=== PATIENT | female | born 1985 | race Caucasian/White ===

== ENCOUNTER → 2016-09-17 | Outpatient (CLI) | payer BC ==
[2016-09-18 23:10] LABS: CMVRU RESULT Negative (Negative); CMVRU SPECIMEN SOURCE AMINOTIC FLUID
[2016-09-19 09:53] LABS: GA USED Scan estimate; GENERAL TEST INFO See Comments; INTERPRETATION See Comments
[2016-09-19 14:13] LABS: MISCELLANEOUS TEST See Comments
[2016-09-27 10:33] LABS: MISCELLANEOUS TEST See Comments
== END ==
LOC: FIMAGING 10:07
PROVIDERS: ATTEND Advanced Practice Midwife
PROC: 10903ZU Drainage of Amniotic Fluid, Diagnostic from Products of Conception, Percutaneous Approach (ICD-10-PCS; principal; 2016-09-17)
DX: O36.5921 Maternal care for other known or suspected poor fetal growth, second trimester, fetus 1 (principal); R63.0 Anorexia; Z3A.21 21 weeks gestation of pregnancy
CPT/HCPCS: 82106-90; 87496-90; 87798-90

== ENCOUNTER → 2016-10-03 | Outpatient (CLI) | payer BC | LOC: FIMAGING 14:39 | PROVIDERS: ATTEND Advanced Practice Midwife | DX: O36.5920 Maternal care for other known or suspected poor fetal growth, second trimester, not applicable or unspecified (principal); Z3A.24 24 weeks gestation of pregnancy ==

== ENCOUNTER → 2016-10-10 | Outpatient (CLI) | payer BC | LOC: FIMAGING 10:04 | PROVIDERS: ATTEND Advanced Practice Midwife | DX: O36.5920 Maternal care for other known or suspected poor fetal growth, second trimester, not applicable or unspecified (principal); Z3A.25 25 weeks gestation of pregnancy ==

== ENCOUNTER → 2016-10-17 | Outpatient (CLI) | payer BC | LOC: FIMAGING 13:27 | PROVIDERS: ATTEND Advanced Practice Midwife | DX: O26.842 Uterine size-date discrepancy, second trimester (principal); Z3A.26 26 weeks gestation of pregnancy ==

== ENCOUNTER → 2016-10-24 | Outpatient (CLI) | payer BC | LOC: FIMAGING 10:03 | PROVIDERS: ATTEND Advanced Practice Midwife | DX: O36.5931 Maternal care for other known or suspected poor fetal growth, third trimester, fetus 1 (principal); Z3A.27 27 weeks gestation of pregnancy ==

== ENCOUNTER → 2016-10-31 | Outpatient (CLI) | payer BC | LOC: FIMAGING 11:40 | PROVIDERS: ATTEND Advanced Practice Midwife | DX: O36.5930 Maternal care for other known or suspected poor fetal growth, third trimester, not applicable or unspecified (principal); Z3A.28 28 weeks gestation of pregnancy ==

== ENCOUNTER → 2016-11-07 | Outpatient (CLI) | payer BC | LOC: FIMAGING 09:45 | PROVIDERS: ATTEND Advanced Practice Midwife | DX: O36.5921 Maternal care for other known or suspected poor fetal growth, second trimester, fetus 1 (principal); Z3A.27 27 weeks gestation of pregnancy ==

== ENCOUNTER → 2016-11-14 | Outpatient (CLI) | payer BC | LOC: FIMAGING 09:11 | PROVIDERS: ATTEND Advanced Practice Midwife | DX: O36.5930 Maternal care for other known or suspected poor fetal growth, third trimester, not applicable or unspecified (principal); Z3A.30 30 weeks gestation of pregnancy ==

== ENCOUNTER → 2016-11-21 | Outpatient (CLI) | payer BC | LOC: FIMAGING 11:33 | PROVIDERS: ATTEND Obstetrics & Gynecology | DX: O36.5930 Maternal care for other known or suspected poor fetal growth, third trimester, not applicable or unspecified (principal); Z3A.31 31 weeks gestation of pregnancy ==

== ENCOUNTER → 2016-11-28 | Outpatient (CLI) | payer BC | LOC: FIMAGING 13:42 | PROVIDERS: ATTEND Obstetrics & Gynecology | DX: O36.5930 Maternal care for other known or suspected poor fetal growth, third trimester, not applicable or unspecified (principal); Z3A.32 32 weeks gestation of pregnancy ==

== ENCOUNTER → 2016-12-05 | Outpatient (CLI) | payer BC | LOC: FIMAGING 08:59 | PROVIDERS: ATTEND Obstetrics & Gynecology | DX: Z34.03 Encounter for supervision of normal first pregnancy, third trimester (principal); Z3A.33 33 weeks gestation of pregnancy ==

== ENCOUNTER 2016-12-09 10:12 | Observation (INO) | payer BC | END 2016-12-09 10:55 | disposition home or self-care (01) | LOC: FLD 10:12 | PROVIDERS: ADMIT Obstetrics & Gynecology; ATTEND Obstetrics & Gynecology | DX: Z36 Encounter for antenatal screening of mother (principal) | CPT/HCPCS: G0378 ==

== ENCOUNTER → 2016-12-12 | Outpatient (CLI) | payer BC | LOC: FIMAGING 12:16 | PROVIDERS: ATTEND Obstetrics & Gynecology | DX: O36.5930 Maternal care for other known or suspected poor fetal growth, third trimester, not applicable or unspecified (principal); Z3A.34 34 weeks gestation of pregnancy ==

== ENCOUNTER → 2016-12-26 | Outpatient (CLI) | payer BC | LOC: FIMAGING 13:06 | PROVIDERS: ATTEND Obstetrics & Gynecology | DX: O36.5930 Maternal care for other known or suspected poor fetal growth, third trimester, not applicable or unspecified (principal); O26.843 Uterine size-date discrepancy, third trimester; Z3A.36 36 weeks gestation of pregnancy ==

== ENCOUNTER 2017-01-01 06:00 | Inpatient (IN) | payer BC ==
[2017-01-01] MEDS ORDERED: OLIVE OIL 118 ML BTL MISC PRN (06:30)
[2017-01-01] MEDS ORDERED: LR 1,000 ML IV PRN (06:30)
[2017-01-01] MEDS ORDERED: TERBUTALINE SULFATE 1 MG/ML VIAL IV PRN (06:30)
[2017-01-01] MEDS ORDERED: OXYTOCIN/RINGERS LACTATE 1,000 ML IV PRN (06:30)
[2017-01-01] MEDS ORDERED: IBUPROFEN 600 MG TAB PO PRN (06:30)
[2017-01-01] MEDS ORDERED: EPSOM SALT 454 GM TP PRN (06:30)
[2017-01-01 07:25] LABS: % IMMATURE GRANULYOCYTES 0.4 % (0.0-1.1); ABSOLUTE IMMATURE GRANULOCYTES 0.04 10^3/uL (0.00-0.10); ADD DIFF? NO; ADD MORPH? NO; ADD SCAN? NO; ATYPICAL LYMPHOCYTE FLAG 0 (0-99); FRAGMENT RBC FLAG 0 (0-99); HEMATOCRIT 41.8 % (38.0-47.0); HEMOGLOBIN 13.9 g/dL (12.6-16.3); LEFT SHIFT FLG 0 (0-99); LIPEMIA HEMOLYSIS FLAG 80 (0-99); MEAN CELL HEMOGLOBIN 27.7 pg (27.9-34.1); MEAN CELL HEMOGLOBIN CONCENTR. 33.3 g/dL (32.4-36.7); MEAN CELL VOLUME 83.3 fL (81.5-99.8); MEAN PLATELET VOLUME 13.1 fL (8.7-11.7); PLATELET CLUMPS FLAG 0 (0-99); PLATELET COUNT 192 10^3/uL (150-400); RED BLOOD CELL COUNT 5.02 10^6/uL (4.18-5.33); RED CELL DISTRIBUTION WIDTH 13.7 % (11.5-15.2)
[2017-01-01] MEDS ORDERED: LIDOCAINE 1% 300 MG/30 ML SDV ONE (07:39)
[2017-01-01] MEDS ORDERED: MISOPROSTOL 200 MCG TAB ONE (07:40)
[2017-01-01 07:44] LABS: ALANINE AMINOTRANSFERASE 37 IU/L (9-52); ASPARTATE AMINOTRANSFERASE 43 IU/L (14-46); BILIRUBIN,TOTAL 0.7 mg/dL (0.1-1.4); BILIRUBIN-CONJUGATED 0.3 mg/dL (0.0-0.5); BILIRUBIN-UNCONJUGATED 0.4 mg/dL (0.0-1.1); CREATININE 0.9 mg/dL (0.6-1.0); GLOMERULAR FILTRATION RATE > 60; LACTATE DEHYDROGENASE 658 IU/L (313-618); URIC ACID 8.3 mg/dL (2.5-6.8)
[2017-01-01] MEDS ORDERED: OXYTOCIN/LR *STANDARD DOSE PROTOCOL IV SCH (08:00)
[2017-01-01] MEDS ORDERED: LR 500 ML IV PRN (13:00)
[2017-01-01] MEDS ORDERED: OXYTOCIN/RINGERS LACTATE 500 ML IV SCH (13:00)
[2017-01-01] MEDS ORDERED: PHENYLEPHRINE HCL 100 MCG/ML SYR ONE (14:24)
[2017-01-01] MEDS ORDERED: BUPIVACAINE 0.25% 30 ML SDV ONE (14:24)
[2017-01-01] MEDS ORDERED: fentaNYL 2MCG/ML/BUP 0.1% RTU 100 ML BAG EP ONE (14:24)
--- NOTE | 2017-01-01 14:24 | GHP ---
[f rep st] HISTORY AND PHYSICAL DATE OF ADMISSION: 01/01/2017 ADMITTING DIAGNOSES: 1. Intrauterine at 37 weeks. 2. Intrauterine growth retardation, estimated weight 2nd percentile. HISTORY OF PRESENT ILLNESS: Patient is a 31-year-old 1, para 0 at 37 weeks with an estimated due date 01/22/2017 by last menstrual period 04/17/2016 , and consistent with first trimester ultrasound done at 8 weeks. Patient presents to Labor and Delivery for an induction of labor secondary to IUGR. She had a woo balloon placed last night. Most recent ultrasound showed an estimated weight in the 2nd percentile with increased resistance in both umbilical artery dopplers and per [facility] recommendation patient is to be induced. Patient has been followed by perinatology closely. Patient states there is good movement. Denies any leakage of fluid or vaginal bleeding. Denies any contractions prior to coming in to Labor and Delivery. Patient denies headaches, visual changes, or any right upper quadrant pain. Patient has good care here at [facility] where she presented in her 1st trimester. is complicated by IUGR, which was noted at 20-week ultrasound. Patient is Rh negative as well as father of baby but, did receive RhoGAM 09/18/2016. She has a long history of depression and anxiety as well as anorexia and is taking several medications and sees a psychiatrist. All genetic testing is negative. Patient did receive Tdap. GBS is negative. PAST OBSTETRICAL HISTORY: Primip. GYNECOLOGICAL HISTORY: Age of menarche is 11. Cycles are every 28 days x7 days. Last menstrual period 04/17/2016. Positive test 06/03/2016. Patient denies history of abnormal Pap smears or any exposure to sexually transmitted diseases. MEDICAL HISTORY: Remarkable for depression, anxiety, anorexia and migraine headaches. SURGERY: [place] teeth extraction. HOME MEDICATIONS: Includes [id number] , Ambien, Adderall, Wellbutrin, and gabapentin. ALLERGIES: Iodine. SOCIAL HISTORY: Patient is . She lives with her . She is a dental hygienist. Denies any alcohol, tobacco, or illicit drug use. FAMILY HISTORY: Unremarkable. REVIEW OF SYSTEMS: 10-point review of systems is negative. Pertinent positives noted in HPI. LABORATORY DATA: The patient is O negative, antibody negative. RPR nonreactive. Rubella immune. Hepatitis B surface antigen negative. HIV negative. Trio screen negative. AFP negative. Verifi negative. 1-hour Glucola was normal at 87. H and H 12.5/38. GBS negative. PHYSICAL EXAMINATION: VITAL SIGNS: On admission, afebrile. Vital signs are stable. She did have some elevated blood pressures 130s to 140s over 90s. GENERAL: She is a well-nourished, well-developed female, alert and oriented x3 , in no apparent distress. CARDIOVASCULAR: Regular rate and rhythm. LUNGS: Clear to auscultation bilaterally. ABDOMEN: Gravid, soft, nontender, nondistended. PELVIC: She was found to be 4 cm, 90% effaced, -2 station, intact after Woo balloon was removed. EXTREMITIES: Normal to inspection without swelling or calf tenderness. heart tones are with category 2 tracing with a baseline of 160 beats per minute, positive accelerations, mild intermittent variable decelerations, and moderate variability. On [place], she is bradley irregularly. ASSESSMENT: The patient is a 31-year-old 1, para 0, at 37 weeks who presents for an induction of labor status post Woo bulb secondary to intrauterine growth retardation. PLAN: 1. Admit to Labor and Delivery for induction of labor. 2. Pitocin per protocol, already started. 3. Group B Strep is negative; no antibiotics needed. 4. Will monitor blood pressures, check PIH labs. 5. Patient is interested in nitrous and ultimately desires an epidural. /[id number]/MODL MTDD
[2017-01-01] MEDS ORDERED: fentaNYL 100 MCG/2 ML INJ ONE ×2 (14:26→14:27)
[2017-01-01] MEDS ORDERED: PHENYLEPHRINE HCL 100 MCG/ML SYR IVP PRN (16:37)
[2017-01-01] MEDS ORDERED: ONDANSETRON 4 MG/2 ML VIAL IVP PRN (16:37)
--- NOTE | 2017-01-01 16:58 | PREANESOB ---
Obstetric Pre-Anesthesia Info - General Info Proposed Procedure: Labor and delivery with pitocin. : 1 Para: 0 WBD: 37 - Info Status: Full Term Monitors: External FHR Baseline (bpm): 135 FHR Pattern: Reassuring - Labor Status Cervical Dilation per last OB SVE: 4 Rupture of Membranes Time: 13:15 Pitocin: In Use Indications for Labor Analgesia: Induction of Labor (Preeclampsia, IUGR.), Pain Control Labor Epidural: Proposed Anesthesia ROS: negative. Allergies/Adverse Reactions: Allergy/AdvReac Type Severity Reaction Status Date / Time iodine Allergy Hives Verified 12/09/16 10:37 Home Medications: Medication Instructions Recorded Adderall 7.5 mg Tablet 12/09/16 Gabapentin [Neurontin 300 MG (*)] 300 mg PO HS 12/09/16 Vit27&Calcium/Iron/FA 12/09/16 [] Zolpidem Tartrate [Ambien 5MG (*)] 12/09/16 buPROPion [Wellbutrin] 300 mg PO 12/09/16 Visit Medications: Generic Name Dose Route Start Last Admin Trade Name Freq PRN Reason Stop Dose Admin Lactated Ringer's 1,000 mls @ 0 mls/hr 01/01/17 06:30 Lr IV 06/30/17 06:29 PRN PRN SEE PROTOCOL CONDITIONS Protocol Per Protocol Oxytocin/Lactated Ringer's 1,000 mls @ 150 mls/hr 01/01/17 06:30 Pitocin 20 Units/Lr (Premix) IV PRN PRN Post- bleeding Lactated Ringer's 500 mls @ 500 mls/hr 01/01/17 13:00 Lr IV PRN PRN Maternal Hypotension Oxytocin/Lactated Ringer's 500 mls @ 0 mls/hr 01/01/17 13:00 Pitocin 30 Units/Lr (Premix) IV 06/30/17 12:59 CONT BABS Protocol Per Protocol Ibuprofen 600 mg 01/01/17 06:30 Motrin PO 06/30/17 06:29 Q6HRS PRN post , inflammation Magnesium Sulfate 454 gm 01/01/17 06:30 Epsom Salt TP 06/30/17 06:29 PRN PRN perineal discomfort [place] Oil 118 ml 01/01/17 06:30 Sweet Oil MISC 06/30/17 06:29 ONCE PRN preneal massage Terbutaline Sulfate 0.25 mg 01/01/17 06:30 Brethine IV 06/30/17 06:29 ONCE PRN Tachysystole Discontinued Medications Generic Name Dose Route Start Last Admin Trade Name Moris PRN Reason Stop Dose Admin Bupivacaine HCl Confirm 01/01/17 14:24 Sensorcaine 0.25% Sdv Administered 01/01/17 14:25 Dose 30 ml .ROUTE .STK-MED ONE Fentanyl Confirm 01/01/17 14:26 Sublimaze Administered 01/01/17 14:27 Dose 100 mcg .ROUTE .STK-MED ONE Fentanyl Confirm 01/01/17 14:27 Sublimaze Administered 01/01/17 14:28 Dose 100 mcg .ROUTE .STK-MED ONE Fentanyl/Bupivacaine HCl Confirm 01/01/17 14:24 Fentanyl/Bupivacaine/Ns 2 Mcg/Ml 0.1% (Premix Administered 01/01/17 14:25 Dose 100 ml EP .STK-MED ONE Oxytocin/Lactated Ringer's 500 mls @ 0 mls/hr 01/01/17 08:00 Pitocin 30 Units/Lr (Premix) IV 06/30/17 07:59 CONT BABS Protocol Per Protocol Lidocaine HCl Confirm 01/01/17 07:39 Lidocaine Hcl 1% Administered 01/01/17 07:40 Dose 300 mg .ROUTE .STK-MED ONE Misoprostol Confirm 01/01/17 07:40 Cytotec Administered 01/01/17 07:41 Dose 1,000 mcg .ROUTE .STK-MED ONE Phenylephrine HCl Confirm 01/01/17 14:24 Neosynephrine Administered 01/01/17 14:25 Dose 1,000 mcg .ROUTE .STK-MED ONE - Anesthesia History Response to Local Anesthetics: Normal Anesthesia & Operative History: No Prior Problems Family Anesthesia History: Negative - Social History Substance Use/Abuse: Denies - Focused Exam Blood Pressure: 132/92 Heart Rate: 73 Respiratory Rate: 16 Height/Weight (Nursing): Height 162.56 cm Weight 63.503 kg Physical Exam: Within normal limits. ASA Status: II Labs: 01/01/17 07:15 01/01/17 07:15 Patient ABO/Rh O NEGATIVE 01/01/17 07:15 Uric Acid 8.3 mg/dL (2.5-6.8) H 01/01/17 07:15 Total Bilirubin 0.7 mg/dL (0.1-1.4) 01/01/17 07:15 Conjugated Bilirubin 0.3 mg/dL (0.0-0.5) 01/01/17 07:15 Unconjugated Bilirubin 0.4 mg/dL (0.0-1.1) 01/01/17 07:15 AST 43 IU/L (14-46) 01/01/17 07:15 ALT 37 IU/L (9-52) 01/01/17 07:15 Lactate Dehydrogenase 658 IU/L (313-618) H 01/01/17 07:15 - Plan Anesthetic Plan: CSE Consent Signed and on Chart: Yes Patient/Guardian Understands and Agrees to Plan: Yes Urgent/Emergent Case: Anes eval completed preop but documented later for safe timely pt care
[2017-01-01] MEDS ORDERED: LR 500 ML IV SCH (17:00)
[2017-01-01] MEDS ORDERED: fentaNYL 2MCG/ML/BUP 0.1% RTU 100 ML EP SCH (17:00)
--- NOTE | 2017-01-01 17:25 | POSTANESTH ---
Post Anesthetic Evaluation Cardiovascular Status: Normal, Stable Respiratory Status: Normal, Stable Level of Consciousness/Mental Status: Can Participate in Eval Pain Control: Adequate, Prn Tx Ordered Nausea/Vomiting Control: Adequate, Prn Tx Ordered Complications Possibly Related to Anesthesia: None Noted (Tolerated CSE well, stable, comfortable.)
--- NOTE | 2017-01-01 18:34 | OBPROG ---
OBG Labor Progress Note Assessment/Plan: Assessment: 31 y/o @ 37 weeks for IOL secondary to IUGR Plan: s/p epidural AROM -clear fluid; bloody show noted FHTs - Cat II tracing Anticipate 01/01/17 18:35 Subjective: Pt is comfortable, s/p epidural. She is having nausea and vomited twice. Objective: 01/01/17 07:15 01/01/17 07:15 Patient ABO/Rh O NEGATIVE 01/01/17 07:15 Uric Acid 8.3 mg/dL (2.5-6.8) H 01/01/17 07:15 Total Bilirubin 0.7 mg/dL (0.1-1.4) 01/01/17 07:15 Conjugated Bilirubin 0.3 mg/dL (0.0-0.5) 01/01/17 07:15 Unconjugated Bilirubin 0.4 mg/dL (0.0-1.1) 01/01/17 07:15 AST 43 IU/L (14-46) 01/01/17 07:15 ALT 37 IU/L (9-52) 01/01/17 07:15 Lactate Dehydrogenase 658 IU/L (313-618) H 01/01/17 07:15 Temp Pulse Resp BP Pulse Ox 73 16 132/92 H 01/01/17 17:24 01/01/17 17:24 01/01/17 17:24 - SVE Dilation (cm): 9 Effacement (%): 100 Station: -1 Barry Current Contraction Pattern: Regular FHR (bpm): 140 FHR Pattern Variability: Moderate FHR Category: 2 (Intermittent variable decels) Membranes: AROM (forebag; bloody show noted) Amniotic Fluid Color: Clear - Procedures Non-surgical Procedures: Amniotomy Oxytocin Orders Assessment - Pre-Induction/Augmentation Assessment Indication: IUGR Presentation: Vertex Gestational Age: 37 week(s) and 0 day(s) Gestational Age Determined By: Ultrasound (confirmed by first trimester u/s), Last Menstral Period Estimated Weight: 2501-3400g Membrane Status: Ruptured Current Contraction Pattern: Regular ICD10 Worksheet Patient Problems: Problems Problem Status Onset IUGR (intrauterine growth restriction) Acute - ICD10 Problem Qualifiers (1) IUGR (intrauterine growth restriction)
[2017-01-01 21:22] LABS: PH VENOUS CORD BLOOD 7.21 (7.20-7.42)
[2017-01-01] MEDS ORDERED: HYDROCODONE/APAP 5/325 TAB PO PRN (21:25)
[2017-01-01] MEDS ORDERED: SIMETHICONE 80 MG TAB CHEW PO PRN (21:25)
[2017-01-01] MEDS ORDERED: HYDROCORTISONE 0.5% CREAM TP PRN (21:25)
--- NOTE | 2017-01-01 21:39 | OBDEL ---
Info Type: Vaginal GBS+: No Indications for Delivery: Growth Restriction w/Abnormal Doppler studies Vaginal Delivery - Labor and Delivery Onset of Contractions Date: 01/01/17 Onset of Contractions Time: 14:30 Onset of Contractions Type: Induced Rupture of Membranes Date: 01/01/17 Rupture of Membranes Time: 13:15 Rupture of Membranes Type: Spontaneous Amniotic Fluid Color: Clear, Bloody Dilation Complete Date: 01/01/17 Dilation Complete Time: 20:15 Placenta Delivery Date: 01/01/17 Placenta Delivery Time: 21:10 Total Hours of Labor: 6 Non-surgical Procedures: Amniotomy Laceration: Other (Specify) (R lateral vaginal wall) Repair: 3-0, Vicryl Vaginal Sponge Count Correct: Yes Vaginal Needle Count Correct: Yes Vaginal Sweep Performed: Yes EBL: 750 Delivery Events: Other (Specify) (Placental abruption noted during pushing. 4 pads were changed. + large blood clots x 4 noted after placenta delivered during fundal check and vaginal sweep. Placenta sent to pathology and prior to that it was inspected and blood clot noted c/w abrutpion.) Cord Gases: Cord Gases Cord Blood PCO2 TNP 01/01/17 21:06 Cord Base Excess TNP 01/01/17 21:06 Cord ABG pH TNP 01/01/17 21:06 Cord VBG pH 7.21 (7.20-7.42) 01/01/17 21:06 - Medications Labor Augmentation/Induction Methods Used: Pitocin Labor Augmentation/Induction Indication: IUGR (with abnormal dopplers) Operative Report - Delivery Cord Gases: Cord Gases Cord Blood PCO2 TNP 01/01/17 21:06 Cord Base Excess TNP 01/01/17 21:06 Cord ABG pH TNP 01/01/17 21:06 Cord VBG pH 7.21 (7.20-7.42) 01/01/17 21:06 Data Barry Delivery Date: 01/01/17 Delivery Time: 21:06 VAZQUEZ: 01/22/17 Gestational Age: 37 week(s) and 0 day(s) Sex of : Female Score (1 Min): 8 Score (5 Min): 9 ICD10 Worksheet Patient Problems: Problems Problem Status Onset IUGR (intrauterine growth restriction) Acute Placenta abruption, delivered, current hospitalization Acute (spontaneous vaginal delivery) Acute - ICD10 Problem Qualifiers (1) IUGR (intrauterine growth restriction) (2) (spontaneous vaginal delivery) (3) Placenta abruption, delivered, current hospitalization
[2017-01-01] MEDS ORDERED: GABAPENTIN 300 MG CAP PO SCH (22:00)
[2017-01-02] MEDS: IBUPROFEN 600 MG TAB PO PRN ×2 (00:10→11:46)
[2017-01-02] MEDS: GABAPENTIN 300 MG CAP PO SCH ×2 (07:11→21:17)
[2017-01-02] MEDS: ADDERALL 15 MG PO SCH ×2 (11:45→16:26)
[2017-01-02] MEDS: DOCUSATE SODIUM 100 MG CAP PO PRN (11:45)
--- NOTE | 2017-01-02 19:59 | OBPP ---
Progress Note Assessment/Plan: Assessment: pain well managed vs wnl and feeding with assistance voiding without difficulty pericare Plan:pp day 1 expectant management 01/02/17 19:57 Subjective: doing well denies pain and feeding with assistance needing reassurance Objective: 01/01/17 07:15 01/01/17 07:15 Patient ABO/Rh O NEGATIVE 01/01/17 23:15 Uric Acid 8.3 mg/dL (2.5-6.8) H 01/01/17 07:15 Total Bilirubin 0.7 mg/dL (0.1-1.4) 01/01/17 07:15 Conjugated Bilirubin 0.3 mg/dL (0.0-0.5) 01/01/17 07:15 Unconjugated Bilirubin 0.4 mg/dL (0.0-1.1) 01/01/17 07:15 AST 43 IU/L (14-46) 01/01/17 07:15 ALT 37 IU/L (9-52) 01/01/17 07:15 Lactate Dehydrogenase 658 IU/L (313-618) H 01/01/17 07:15 Temp Pulse Resp BP Pulse Ox 36.6 C 64 16 115/71 01/02/17 09:30 01/02/17 09:30 01/02/17 09:30 01/02/17 09:30 Uterine Position/Fundal Height: At Umbilicus Uterine Tone: Firm Physical Exam - Physical Exam General Appearance: WD/WN, alert, no apparent distress Abdomen: other (ff2U) Extremities: Ronel's sign (NEGATIVE BILATERALLY) DTR- Lower Extremities: Knee (R): 1+, Knee (L): 1+ (NO CLONUS) Skin: normal color, warm/dry Neuro/Psych: no motor/sensory deficits, alert, normal mood/affect, oriented x 3
[2017-01-02] MEDS ORDERED: ZOLPIDEM TARTRATE 5 MG TAB PO PRN (21:00)
--- NOTE | 2017-01-03 08:07 | OBPP ---
Progress Note Assessment/Plan: Assessment: 1) s/p PPD # 2 - pt is stable 2) Depression/Anxiety - stable on meds Plan: Continue routine pp care to see pt today Concerns with BF due to home meds - BF during day and pump and dump at night Plan for d/c home in am 01/0401/03/17 08:02 Subjective: Pt seen and examined. Doing well, no complaints. Some cramping, relief with Motrin. Moderate lochia. Voiding without difficulty. Passing flatus, no BM. Some concerns with BF. She is BF during the day and pumping/dumping at night. Wants to work with today. Objective: 01/01/17 07:15 01/01/17 07:15 Patient ABO/Rh O NEGATIVE 01/01/17 23:15 Uric Acid 8.3 mg/dL (2.5-6.8) H 01/01/17 07:15 Total Bilirubin 0.7 mg/dL (0.1-1.4) 01/01/17 07:15 Conjugated Bilirubin 0.3 mg/dL (0.0-0.5) 01/01/17 07:15 Unconjugated Bilirubin 0.4 mg/dL (0.0-1.1) 01/01/17 07:15 AST 43 IU/L (14-46) 01/01/17 07:15 ALT 37 IU/L (9-52) 01/01/17 07:15 Lactate Dehydrogenase 658 IU/L (313-618) H 01/01/17 07:15 Temp Pulse Resp BP Pulse Ox 36.4 C 72 16 131/91 H 99 01/02/17 20:10 01/02/17 20:10 01/02/17 20:10 01/02/17 20:10 01/02/17 20:10 Uterine Position/Fundal Height: Umbilicus -2 Uterine Tone: Firm Physical Exam - Physical Exam General Appearance: WD/WN, alert, no apparent distress Respiratory: lungs clear, normal breath sounds Cardiac/Chest: regular rate, rhythm Abdomen: normal bowel sounds, non-tender, soft, flatus (+) Extremities: non-tender, normal inspection Skin: normal color, warm/dry Neuro/Psych: alert, normal mood/affect, oriented x 3
[2017-01-03] MEDS: DOCUSATE SODIUM 100 MG CAP PO PRN (10:07)
[2017-01-03] MEDS: ADDERALL 15 MG PO SCH (10:09)
[2017-01-03 19:52] VITALS: RESP 18
[2017-01-03] MEDS: GABAPENTIN 300 MG CAP PO SCH (21:21)
[2017-01-04] MEDS: ADDERALL 15 MG PO SCH (10:53)
--- NOTE | 2017-01-04 11:12 | OBPP ---
Progress Note Assessment/Plan: Assessment: pain well managed BP elevated and bottlefeeding with assistance/ encouraged bottlefeeding because of medications patient taking voiding without difficulty with urgency and urine leakagescant rubra lochia ff@U pericare Plan:Discharge to home with instructions fu 1 week for a bp check, 4 and 6 weeks , pericare, pain management, rest, bottlefeeding, breast management to assist with drying up milk, pelvic rest, exercise, baby care, new normal, ss infection 01/02/17 19:57 01/04/17 11:08 Subjective: Doing well. Denies difficulites. Sleepy, not resting much. Pain well managed. Having some difficulties with urine leakage and urgency after delivery Objective: 01/01/17 07:15 01/01/17 07:15 Patient ABO/Rh O NEGATIVE 01/01/17 23:15 Uric Acid 8.3 mg/dL (2.5-6.8) H 01/01/17 07:15 Total Bilirubin 0.7 mg/dL (0.1-1.4) 01/01/17 07:15 Conjugated Bilirubin 0.3 mg/dL (0.0-0.5) 01/01/17 07:15 Unconjugated Bilirubin 0.4 mg/dL (0.0-1.1) 01/01/17 07:15 AST 43 IU/L (14-46) 01/01/17 07:15 ALT 37 IU/L (9-52) 01/01/17 07:15 Lactate Dehydrogenase 658 IU/L (313-618) H 01/01/17 07:15 Temp Pulse Resp BP Pulse Ox 36.4 C 78 18 126/87 H 96 01/03/17 19:51 01/03/17 19:51 01/03/17 19:51 01/03/17 19:51 01/03/17 19:51 Uterine Position/Fundal Height: At Umbilicus Uterine Tone: Firm Physical Exam - Physical Exam General Appearance: WD/WN, alert, no apparent distress Abdomen: other (ff@u) Extremities: Ronel's sign (negative bilaterally) DTR- Lower Extremities: Knee (R): 1+, Knee (L): 1+ Skin: normal color, warm/dry Neuro/Psych: no motor/sensory deficits, alert, normal mood/affect, oriented x 3
--- NOTE | 2017-01-04 11:18 | OBGCSDC ---
General Delivery Information - General Info : 1 Para: 1 Delivery Physician/CNM: Roxana Hernández Labs: Patient ABO/Rh O NEGATIVE 01/01/17 23:15 Hct 41.8 % (38.0-47.0) 01/01/17 07:15 Vaginal - Diagnosis Labor: Induced Rupture of Membranes Type: Spontaneous Amniotic Fluid Color: Clear, Bloody Laceration: Other (Specify) (R lateral vaginal wall) Repair: 3-0, Vicryl Delivery Events: Other (Specify) (Placental abruption noted during pushing. 4 pads were changed. + large blood clots x 4 noted after placenta delivered during fundal check and vaginal sweep. Placenta sent to pathology and prior to that it was inspected and blood clot noted c/w abrutpion.) - Operations/Procedures Non-surgical Procedures: Amniotomy L&D Analgesia/Anesthesia Type: Epidural - Hospital Course Antepartum: anorexic, IUGR, MFM growth and routine dopplers< 2 % growth. Routine surveillance Intrapartum: Vaginal delivery, 2 degree repair did well. SGA baby. : Doing well. Quite stressed with learning how to care for baby.. Wanting to breastfeed. Discouraged, discussed bottlefeeding. Incontinance of urine after delivery. Encouraged waiting 6 weeks pp to see how things go Revisit pelvic therapy at 6 weeks pp - Delivery Non-surgical Procedures: Amniotomy L&D Analgesia/Anesthesia Type: Epidural [place] Data Barry Delivery Date: 01/01/17 Delivery Time: 21:06 VAZQUEZ: 01/22/17 Gestational Age: 37 week(s) and 3 day(s) Sex of Infant: Female Weight (gm): 2022 g Score (1 Min): 8 Score (5 Min): 9
[2017-01-04 11:25] VITALS: BP 124/81; PULSE 59; TEMP 97; O2SAT 99
== END 2017-01-04 15:40 | disposition home or self-care (01) | DRG 774 ==
LOC: OBSVTOIN 06:14 → FLD 06:14 → FOB 23:47
PROVIDERS: ADMIT Obstetrics & Gynecology; ATTEND Obstetrics & Gynecology
DX: O36.5930 Maternal care for other known or suspected poor fetal growth, third trimester, not applicable or unspecified (principal); O70.1 Second degree perineal laceration during delivery; O45.93 Premature separation of placenta, unspecified, third trimester; O26.893 Other specified pregnancy related conditions, third trimester; O99.344 Other mental disorders complicating childbirth; F41.9 Anxiety disorder, unspecified; Z3A.37 37 weeks gestation of pregnancy; Z37.0 Single live birth
CPT/HCPCS: J2370; J2405; J2590; J3010

== ENCOUNTER 2018-03-17 17:53 | Emergency (ER) | payer BC, OTHER ==
--- NOTE | 2018-03-17 18:25 | EDPHY ---
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 Today while at work when she was cleaning a a device used to irrigate the teeth. She was wearing a glove at the time. The tool was used on 1 patient prior to her exposure. She reports minimal bleeding and she clean the wound with hot soapy water prior to coming in for evaluation. The contact source had no known significant health problems but was primarily [place]-speaking and our patient didn't feel confident that they'd obtained a complete past medical hx. She reports no significant pain or bleeding from the injury since she cleaned it. ROS: Neuro: No numbness or tingling Musculoskeletal: No bony pain 5 point ROS is otherwise negative Past Medical/Surgical History: Otherwise healthy She has had hep B immunization she believes Social History: No IV drug use. No new sex partners Smoking Status: Former smoker Physical Exam: Physical Exam Vital signs are normal. General: No acute distress Cardiac: Brisk capillary refill is intact throughout. Skin: No rash or pallor. The patient has a 1 mm or so a superficial puncture wound to the palmar aspect of left 3rd finger with no active bleeding. No foreign bodies. No bony tenderness Neuro: Alert and oriented with no sensorimotor deficits in the affected finger. Constitutional: Initial Vital Signs Temperature (C) 36.5 C 03/17/18 17:59 Heart Rate 66 03/17/18 17:59 Respiratory Rate 16 03/17/18 17:59 Blood Pressure 113/82 H 03/17/18 17:59 O2 Sat (%) 99 03/17/18 17:59 O2 Delivery Mode Room Air Allergies/Adverse Reactions: iodine Allergy (Verified 12/09/16 10:37) Hives Home Medications: Medication Instructions Recorded Amphet Asp and D/Amphet [Adderall 0 mg PO DAILY #0 tab 01/04/17 10 MG (*)] Gabapentin [Neurontin 300 MG (*)] 300 mg PO HS #0 cap 01/04/17 buPROPion XL [Wellbutrin 150mg XL] 0 mg PO DAILY #0 tab 01/04/17 Clindamycin Top Gel 03/17/18 LORAZEPAM 03/17/18 Melatonin 03/17/18 RETIN-A 03/17/18 MDM/Departure - MDM Diagnostics: POC basic metabolic panel is normal HB surface antigen, HCV in HIV sent and pending. Discussion: Low risk needlestick like injury through glove hand with dental exposure. She will follow up with [facility]. - Depart Disposition: Home, Routine, Self-Care Clinical Impression: Needle stick injury of finger Qualifiers: Encounter type: initial encounter Qualified Code(s): S61.239A - Puncture wound without foreign body of unspecified finger without damage to nail, initial encounter Condition: Good Instructions: Needle Stick Injuries (ED) Additional Instructions: Diagnosis: Needle stick exposure Plan: Clean wound daily with warm soapy water HIV, hepatitis-B and hepatitis C with labs were drawn and pending. Call [facility] to arrange follow-up appointment for recheck in 7 -10 days. Return emergency department if he develops redness, discharge or other concerns for infection to the wound site. Referrals: Denise Wills MD [Primary Care Provider] - As per Instructions [facility] (ED,. [Edm Groups for Call Sched] - As per Instructions
[2018-03-17 19:13] VITALS: BP 110/77
[2018-03-18 04:59] LABS: HEPATITIS B SURFACE ANTIGEN NEGATIVE (NEGATIVE)
== END 2018-03-17 19:13 | disposition home or self-care (01) ==
LOC: CED 17:53
DX: Z77.21 Contact with and (suspected) exposure to potentially hazardous body fluids (principal); S61.233A Puncture wound without foreign body of left middle finger without damage to nail, initial encounter; W46.1XXA Contact with contaminated hypodermic needle, initial encounter; Y92.531 Health care provider office as the place of occurrence of the external cause; Y93.E9 Activity, other interior property and clothing maintenance; Y99.0 Civilian activity done for income or pay
CPT/HCPCS: 80048-PO